=== PATIENT | male | born 1965 | race Caucasian/White ===

== ENCOUNTER 2020-03-06 05:07 | Day surgery (SDC) | payer OTHER ==
[2020-03-05 11:39] VITALS: BMI 29.5
[2020-03-06 07:06] LABS: HEMATOCRIT 48.1 % (35.4-49); HEMOGLOBIN 16.4 GM/dL (11.7-16.9); MCH 28.7 pg (25.7-33.7); MEAN CELL VOLUME 84.5 fl (80-96); MEAN PLT VOLUME 6.8 fl (7.5-11.1); PLATELET COUNT 351 K/MM3 (134-434); WHITE BLOOD COUNT 8.2 K/mm3 (4.0-10.0)
[2020-03-06 07:23] LABS: ACTIVATED PTT 29.7 SECONDS (25.2-36.5); INR 1.02 (0.83-1.09)
[2020-03-06 07:29] LABS: CHOLESTEROL 208 mg/dL (50-200); HDL CHOLESTEROL 47 mg/dL (40-60); LDL CHOLESTEROL (ONLY SJRH) 141 mg/dL (5-100); TRIGLYCERIDES 118 mg/dL (0-150)
[2020-03-06 07:37] LABS: ALBUMIN 3.9 g/dl (3.4-5.0); BILIRUBIN,TOTAL 0.5 mg/dL (0.2-1); BLOOD UREA NITROGEN 16.7 mg/dL (7-18); CALCIUM 9.3 mg/dL (8.5-10.1); POTASSIUM 4.1 mmol/L (3.5-5.1); TOT PROT 7.6 g/dl (6.4-8.2)
[2020-03-06] MEDS ORDERED: DEXAMETHASONE SOD PHOSPHATE/PF 10 MG/ML SDV ONE (07:46)
[2020-03-06] MEDS ORDERED: BUPIVACAINE HCL 200 ML ONE (07:46)
[2020-03-06] MEDS ORDERED: MIDAZOLAM HCL 2 MG/2 ML SINGLE DOSE VIAL ONE ×2 (07:47)
--- NOTE | 2020-03-06 08:05 | HP ---
History & Physical Update - History History: No Change - Physical Physical: No Change - Assessment Assessment: No Change - Plan Plan: No Change
[2020-03-06] MEDS ORDERED: LIDOCAINE HCL/PF 2% SDV 5ML VIAL ONE (08:17)
[2020-03-06] MEDS ORDERED: PROPOFOL 20 ML ONE (08:18)
[2020-03-06] MEDS ORDERED: ROCURONIUM BROMIDE 50 MG/5 ML SYRINGE ONE ×2 (08:18)
[2020-03-06] MEDS ORDERED: fentaNYL CITRATE 250 MCG/5 ML VIAL ONE (08:18)
[2020-03-06] MEDS ORDERED: ceFAZolin SODIUM 1 GM VIAL IVPB ONE (08:28)
[2020-03-06] MEDS ORDERED: GLYCOPYRROLATE 0.2 MG/1 ML VIAL ONE ×2 (10:12→10:13)
[2020-03-06] MEDS ORDERED: NEOSTIGMINE METHYLSULFATE 0.5 MG/ML - 10 ML MDV ONE (10:12)
[2020-03-06] MEDS ORDERED: KETOROLAC TROMETHAMINE 30 MG/1 ML VIAL ONE (10:12)
[2020-03-06] MEDS ORDERED: DEXAMETHASONE SOD PHOSPHATE 4 MG/1 ML VIAL ONE (10:12)
--- NOTE | 2020-03-06 10:31 | EKG ---
Test Reason : Blood Pressure : / mmHG Vent. Rate : 070 BPM Atrial Rate : 070 BPM P-R Int : 162 ms QRS Dur : 094 ms QT Int : 366 ms P-R-T Axes : 006 -11 007 degrees QTc Int : 395 ms NORMAL SINUS RHYTHM INFERIOR INFARCT (CITED ON OR BEFORE 10-JAN-2007) CANNOT RULE OUT ANTERIOR INFARCT (CITED ON OR BEFORE 10-JAN-2007) ABNORMAL ECG WHEN COMPARED WITH ECG OF 10-JAN-2007 14:02, NO SIGNIFICANT CHANGE WAS FOUND Confirmed by WHITNEY COWAN MD ([id number]) on 03/06/2020 10:31:03 AM Referred By: Tripp Verma Confirmed By:WHITNEY COWAN MD
[2020-03-06] MEDS ORDERED: PROMETHAZINE HCL 25 MG/1 ML VIAL IVPUSH PRN (10:34)
[2020-03-06] MEDS ORDERED: ONDANSETRON 4 MG/2 ML VIAL IVPUSH PRN (10:34)
[2020-03-06] MEDS ORDERED: oxyCODONE HCL 5 MG TABLET PO PRN (10:34)
--- NOTE | 2020-03-06 10:39 | OP ---
Operative Note - Note: Operative Date: 03/06/20 Pre-Operative Diagnosis: RIH w/o obstruction Operation: Robotic RIH repair with mesh Findings: large right indirect inguinal hernia Implants: Progrip mesh Post-Operative Diagnosis: Same as Pre-op Surgeon: Tripp Verma Recreation Facility Manager: Orly Tierney Anesthesia: General Estimated Blood Loss (mls): 5 Operative Report Dictated: Yes
--- NOTE | 2020-03-06 10:47 | SURG ---
Surgery Clay Dry [employer] Operator Note [employer] Operator: Orly Tierney PA-C Date of Service: 03/06/20 Diagnosis: RIH w/o obstruction Procedure: Robotic RIH repair with mesh I was present for the entirety of the operative procedure. For further detail, please refer to operative report. Visit type - Case Type Case Type: Scheduled - Emergency Emergency Visit: No - New patient This patient is new to me today: Yes Date on this admission: 03/06/20
--- NOTE | 2020-03-06 11:00 | OP ---
DATE OF OPERATION: 03/06/2020 PROCEDURE: Robotic-assisted laparoscopic right inguinal hernia repair with mesh. PREOPERATIVE DIAGNOSIS: Right inguinal hernia without obstruction. POSTOPERATIVE DIAGNOSIS: Right inguinal hernia without obstruction. SURGEON: Tripp Verma MD PMO LEAD: VI Bradford ANESTHESIA: General endotracheal. INDICATIONS: This is a 55-year-old male who presents a slowly growing right inguinal bulge associated with discomfort and mild pain on exertion. On physical exam the patient has a reducible right inguinal hernia. The patient was advised to undergo elective inguinal hernia repair. Consent was obtained after a discussion of the risks, benefits, and alternatives to the procedure. DESCRIPTION OF PROCEDURE: The patient was brought to the operating room and placed in the supine position. General endotracheal anesthesia was administered. Both arms were tucked at the sides. The abdomen was prepped and draped in the usual sterile fashion. The patient had preoperative tap block. Using the Veress needle technique, pneumoperitoneum was established via an 8-mm supraumbilical incision using scalpel blade #15. Pneumoperitoneum was established. An 8-mm blunt port was inserted followed by insertion of the laparoscope. The peritoneal cavity was carefully inspected and it was noted to be free of inadvertent injury. A large right inguinal hernia was noted containing reducible pericolic fat. Two 8-mm ports were inserted 8 cm on each side of the midline under direct vision. The target organ was set and the robotic arms were docked. A fenestrated bipolar forcep was inserted at the left-sided port. The Endowrist dean connected to monopolar cautery was inserted through the right- sided port. Then we started to commence the console part of the procedure. A preperitoneal pocket was made by incising the peritoneum at the level of the anterior superior iliac spine using blunt and sharp dissection with the robotic instruments. Using the inferior epigastric vessels as a landmark, dissection was carried laterally towards to the anterior superior iliac spine, inferiorly towards the psoas muscle, and medially towards the underside of the symphysis pubis. The hernia sac was then carefully reduced and from the spermatic cord structures using combined sharp and blunt dissection with the Endoshears and fenestrated bipolar forceps. After the hernia sac was completely reduced. A 10 x 15 cm Progrip mesh was deployed to cover both the inguinal floor, the femoral canal as well as the indirect attenuated internal ring. After deployment was seen satisfactorily, the peritoneal pocket was closed with a continuous V-Loc 2-0 suture. The redundant hernia sac was tucked to the parietal peritoneum also using V-Loc 2-0 suture. After the repair was completed, the robotic instruments were removed. The robotic arms were undocked. The pneumoperitoneum was evacuated. The ports were removed. The wounds were closed with subcuticular Biosyn sutures reinforced with Dermabond. The patient was successfully extubated and transferred to the post anesthesia care unit in satisfactory condition. Estimated blood loss was about 5 mL. Wound class clean. The patient received 2 g of Ancef prior to the start of the procedure. Denis [id number] MTDD
[2020-03-06 13:52] VITALS: BP 137/80; PULSE 77; TEMP 98
== END 2020-03-06 14:15 | disposition home or self-care (01) ==
LOC: JASU-SURG 05:07
PROVIDERS: ATTEND Surgery
PROC: 8E0W4CZ Robotic Assisted Procedure of Trunk Region, Percutaneous Endoscopic Approach (ICD-10-PCS; 2020-03-06)
PROC: 0YU54JZ Supplement Right Inguinal Region with Synthetic Substitute, Percutaneous Endoscopic Approach (ICD-10-PCS; principal; 2020-03-06 08:00)
DX: K40.90 Unilateral inguinal hernia, without obstruction or gangrene, not specified as recurrent (principal)
CPT/HCPCS: 49650; S2900; 36415; 80053; 80061; 83721; 85027; 85610; 85730; 93005; 93010; 94760